=== PATIENT | female | born 1960 | race Caucasian/White ===

== ENCOUNTER 2020-12-06 13:14 | Emergency (ER) | payer BC ==
[2020-12-06 16:00] LABS: ALT/SGPT 65 U/L (12-78); AST/SGOT 32 U/L (15-37); Albumin 4.5 g/dL (3.4-5.0); Alkaline Phosphatase 138 U/L (45-117); BUN Blood Urea Nitrogen 14 mg/dL (7-18); Bicarbonate 27 mmol/L (21-32); Bilirubin Direct 0.4 mg/dL (0-0.2); Bilirubin Total 2.5 mg/dL (0.2-1.0); Glucose Level 108 mg/dL (74-106); Lipase 101 U/L (73-393); Protein, Total 7.6 g/dL (6.4-8.2); Sodium Level 141 mmol/L (136-145)
[2020-12-06 16:04] LABS: Absolute Lymphocytes (CBC) 3.8 K/uL (0.7-4.9); Basophils % 0.9 % (0-1.3); Hematocrit 40.9 % (36.0-45.0); Lymphocytes % 32.9 % (15.3-44.8); MPV 7.8 fL (7.6-11.3); RBC Red Blood Cell Count 4.92 M/uL (3.86-4.86)
--- NOTE | 2020-12-06 16:52 | RAD REPORT ---
EXAM DESCRIPTION: CT - Abdomen Pelvis W Contrast - 12/06/2020 4:32 pm CLINICAL HISTORY: Abdominal pain COMPARISON: none. TECHNIQUE: Computed axial tomography of the abdomen pelvis was obtained. 100 cc Isovue-300 was admin istered intravenously. Oral contrast was not requested which limits evaluation of bowel. All CT scans are performed using dose optimization technique as appropriate and may include automated exposure control or mA/KV adjustment according to patient size. FINDINGS: Fatty liver. Spleen, pancreas, adrenal and kidneys appear unremarkable. There is no evidence of diverticulitis. Normal appendix. Small amount of ill-defined fluid is present within the subcutaneous tissues of the periumbilical reg ion. A discrete abscess is not seen. Increased density within the subcutaneous tissue is also present . Small umbilical hernia is noted IMPRESSION: Small umbilical hernia. Small amount of ill-defined fluid and increased density within t he subcutaneous tissues probably indicating a cellulitis
--- NOTE | 2020-12-06 17:30 | ER ---
Nurse's Notes [facility] Name: Lauren Edmonds Age: 60 yrs Sex: Female : 1960 Arrival Date: 12/06/2020 Time: 13:20 Bed 16 Private MD: Diagnosis: Cellulitis of abdominal wall Presentation: 12/06 13:29 Chief complaint: Patient states: Pain to belly button area since Wednesday night. Red ll1 [place] around her belly button and discharge from area started today. No fever. Coronavirus screen: Vaccine status: Patient reports receiving the 2nd dose of the covid vaccine. Client denies travel out of the [place] in the last 14 days. At this time, the client does not indicate any symptoms associated with coronavirus-19. Ebola Screen: Patient denies travel to an Ebola-affected area in the 21 days before illness onset. Initial Sepsis Screen: Does the patient meet any 2 criteria? HR > 90 bpm. No. Patient's initial sepsis screen is negative. Does the patient have a suspected source of infection? Yes: Skin breakdown/wound. Risk Assessment: Do you want to hurt yourself or someone else? Patient reports no desire to harm self or others. Onset of symptoms was December 03, 2020. 13:29 Method Of Arrival: Ambulatory ll1 13:29 Acuity: ANGEL 3 ll1 Historical: - Allergies: 13:31 No Known Allergies; ll1 - PMHx: 13:31 None; ll1 - PSHx: 13:31 hysterectomy; Tonsillectomy; ll1 - Immunization history:: Client reports receiving the 2nd dose of the Covid vaccine, Flu vaccine is not up to date. - Social history:: Smoking status: Patient denies any tobacco usage or history of. Screenin:11 Abuse screen: Denies threats or abuse. Denies injuries from another. Nutritional tc5 screening: No deficits noted. Tuberculosis screening: No symptoms or risk factors identified. Fall Risk None identified. Assessment: 15:09 Pain: Complains of pain in umbilical area. Derm: Reports pt reports redness around and tc5 clear/bloody drainage from the belly button since wednesday. Vital Signs: 13:29 BP 116 / 82; Pulse 99; Resp 17; Temp 98.0; Pulse Ox 98% ; Weight 94.35 kg; Height 5 ft. ll1 7 in. (170.18 cm); Pain 7/10; 18:04 BP 130 / 83; Pulse 81; Resp 16; Pulse Ox 100% ; tc5 18:35 BP 120 / 89; Pulse 80; Resp 16; Pulse Ox 100% ; tc5 13:29 Body Mass Index 32.58 (94.35 kg, 170.18 cm) 1 ED Course: 13:20 Patient arrived in ED. 2 13:31 Triage completed. ll1 13:32 Arm band placed on. ll1 14:40 Destiny Rojas, HIMANSHU is Primary Nurse. tc5 15:02 Dick Alba NP is PHCP. pm1 15:02 Radames Quiles MD is Attending Physician. pm1 15:37 Inserted saline lock: 20 gauge in left antecubital area, using aseptic technique. Blood tc5 collected. 16:32 CT Abd/Pelvis - IV Contrast Only In Process Unspecified. 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 Exp: tc5 07/12/2022. Lot #: [id number]. } Route: IM; Site: left deltoid; 18:36 Follow up: Response: No adverse reaction tc5 Outcome: 17:29 Discharge ordered by . pm1 18:36 Patient left the ED. tc5 Signatures: Dispatcher [employer] EDMS Dick Alba NP SUBSTANCE ABUSE TECHNICIAN pm1 Raheel Baker RN RN 1 Kiya Shah [facility] Destiny Rojas RN RN tc5
--- NOTE | 2020-12-06 17:30 | EDPHYS ---
Physician Documentation [facility] Name: Lauren Edmonds Age: 60 yrs Sex: Female : 1960 Arrival Date: 12/06/2020 Time: 13:20 Bed 16 Private MD: ED Physician Radames Quiles HPI: 12/06 15:39 This 60 yrs old Female presents to ER via Ambulatory with complaints of BELLY pm1 BUTTON DISCHARGE, REDNESS AROUND BELLY BUTTON. 15:39 Onset: The symptoms/episode began/occurred 3 day(s) ago. pm1 15:39 The patient presents with cellulitis of the umbilical area. Description: Circular, pm1 draining, raised. Possible cause(s): unknown. Associated signs and symptoms: Pertinent negatives: fever, Abdominal pain. Modifying factors: the symptoms are alleviated by nothing, the symptoms are aggravated by nothing. Severity of symptoms: in the emergency department the symptoms are actually worse. The patient has not experienced similar symptoms in the past. The patient has not recently seen a physician. Historical: - Allergies: 13:31 No Known Allergies; ll1 - PMHx: 13:31 None; ll1 - PSHx: 13:31 hysterectomy; Tonsillectomy; ll1 - Immunization history:: Client reports receiving the 2nd dose of the Covid vaccine, Flu vaccine is not up to date. - Social history:: Smoking status: Patient denies any tobacco usage or history of. ROS: 15:39 Constitutional: Negative for fever, chills, and weight loss, Cardiovascular: Negative pm1 for chest pain, palpitations, and edema, Respiratory: Negative for shortness of breath, cough, wheezing, and pleuritic chest pain, Abdomen/GI: Negative for abdominal pain, nausea, vomiting, diarrhea, and constipation, MS/Extremity: Negative for injury and deformity. 15:39 Neuro: Negative for headache, weakness, numbness, tingling, and seizure. 15:39 Skin: Positive for cellulitis, of the umbilical area. 15:39 All other systems are negative. Exam: 15:39 Constitutional: This is a well developed, well nourished patient who is awake, alert, pm1 and in no acute distress. Head/Face: Normocephalic, atraumatic. 15:39 Back: No spinal tenderness. No costovertebral tenderness. Full range of motion. 15:39 Eyes: Exam is negative for acute changes, Extraocular movements: no acute changes, Conjunctiva: no acute changes, no injection, Sclera: no acute changes, icterus, is not appreciated. 15:39 ENT: Exam is negative for acute changes, Mouth: no acute changes, Lips: normal, moist, Oral mucosa: normal, pink and intact, moist. 15:39 Cardiovascular: Exam negative for acute changes, Rate: normal, Rhythm: regular, Pulses: no pulse deficits are appreciated. 15:39 Respiratory: Exam negative for acute changes, respiratory distress, shortness of breath, Breath sounds: are clear throughout. 15:39 Abdomen/GI: Exam negative for acute changes, Inspection: abdomen appears normal, Palpation: abdomen is soft and non-tender, in all quadrants. 15:39 Skin: Appearance: normal except for affected area, cellulitis, that is mild, on the umbilical area. 15:39 Neuro: Exam negative for acute changes, Orientation: is normal, Motor: is normal, moves all fours. Vital Signs: 13:29 BP 116 / 82; Pulse 99; Resp 17; Temp 98.0; Pulse Ox 98% ; Weight 94.35 kg; Height 5 ft. ll1 7 in. (170.18 cm); Pain 7/10; 18:04 BP 130 / 83; Pulse 81; Resp 16; Pulse Ox 100% ; tc5 18:35 BP 120 / 89; Pulse 80; Resp 16; Pulse Ox 100% ; tc5 13:29 Body Mass Index 32.58 (94.35 kg, 170.18 cm) ll1 MDM: 15:39 Patient medically screened. pm1 17:00 Data reviewed: vital signs. Data interpreted: Pulse oximetry: on room air is 98 %. pm1 Interpretation: normal. Counseling: I had a detailed discussion with the patient and/or guardian regarding: the historical points, exam findings, and any diagnostic results supporting the discharge/admit diagnosis. 12/06 15:15 Order name: Basic Metabolic Panel; Complete Time: 16:01 pm1 12/06 15:15 Order name: CBC with Diff; Complete Time: 16:10 pm1 12/06 15:15 Order name: Hepatic Function; Complete Time: 16:01 pm1 12/06 15:15 Order name: Lipase; Complete Time: 16:01 pm1 12/06 15:15 Order name: CT Abd/Pelvis - IV Contrast Only; Complete Time: 17:00 pm1 12/06 15:15 Order name: IV Saline Lock; Complete Time: 15:37 pm1 12/06 15:15 Order name: Labs collected and sent; Complete Time: 15:37 pm1 Administered Medications: 17:55 Drug: Clindamycin 900 mg Route: IVPB; Infused Over: 30 mins; Site: left antecubital; tc5 18:36 Follow up: Response: No adverse reaction tc5 17:55 Drug: Tetanus-Diphtheria Toxoid Adult 0.5 ml {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 Exp: tc5 07/12/2022. Lot #: [id number]. } Route: IM; Site: left deltoid; 18:36 Follow up: Response: No adverse reaction tc5 Disposition: 18:40 Co-signature as Attending Physician, Radames Quiles MD I agree with the assessment and rn plan of care. Attestation: The patient's history, exam findings, diagnostics, and a summary of any interventions or procedures was reviewed in detail with Dick Alba NP. Disposition Summary: 12/06/20 17:29 Discharge Ordered Location: Home pm1 Problem: new pm1 Symptoms: have improved pm1 Condition: Stable pm1 Diagnosis - Cellulitis of abdominal wall pm1 Followup: pm1 - With: Emergency Department - When: As needed - Reason: Worsening of condition Followup: pm1 - With: Private Physician - When: 2 - 3 days - Reason: Recheck today's complaints, Continuance of care, Re-evaluation by your physician Discharge Instructions: - Discharge Summary Sheet pm1 - Cellulitis, Adult pm1 Forms: - Medication Reconciliation Form pm1 - Thank You Letter pm1 - Antibiotic Education pm1 - Prescription Opioid Use pm1 Prescriptions: - Clindamycin HCl 300 mg Oral Capsule - take 1 capsule by ORAL route every 6 hours for 10 days; 40 capsule; Refills: 0, pm1 Product Selection Permitted Signatures: Dispatcher [employer] EDRadames Rivera MD MD rn Marinas, Patrick, NP TICKET SORTER pm1 Raheel Baker RN RN ll1 Destiny Rojas RN RN tc5
[2020-12-06] MEDS ORDERED: CLINDAMYCIN 900MG/D5W 900 MG/50 ML IVPB IV ONE (18:16)
[2020-12-06] MEDS ORDERED: TETANUS & DIPHTHERIA TOX,ADULT 0.5 ML VIAL ONE (18:17)
[2020-12-06 18:42] VITALS: TEMP 98
[2020-12-06 18:44] VITALS: O2SAT 100
[2020-12-06 18:45] VITALS: BP 120/89
== END 2020-12-06 18:36 | disposition home or self-care (01) ==
LOC: ER 13:14
DX: L03.311 Cellulitis of abdominal wall (principal); Z23 Encounter for immunization
CPT/HCPCS: 85025; 80048; 36415; 80076; 83690; 74177; 90471; 90714; 96374; 99284; Q9967

== ENCOUNTER 2020-12-12 11:38 | Emergency (ER) | payer BC ==
--- NOTE | 2020-12-12 11:59 | EDPHYS ---
Physician Documentation [facility] Name: Lauren Edmonds Age: 60 yrs Sex: Female : 1960 Arrival Date: 12/12/2020 Time: 11:41 Bed 11 Private MD: PHIL Physician Wilfredo Gruber HPI: 12/12 16:41 This 60 yrs old Female presents to ER via Ambulatory with complaints of kb Allergic Reaction, Rash. 16:41 The patient presents with rash, that is diffuse. Onset: The symptoms/episode kb began/occurred 3 day(s) ago. Associated signs and symptoms: Pertinent positives: rash. Possible causes: antibiotics, clindamycin. At home the patient or guardian has treated the symptoms with Benadryl. Severity of symptoms: At their worst the symptoms were mild in the emergency department the symptoms are unchanged. The patient has not experienced similar symptoms in the past. The patient has not recently seen a physician. Pt reports rash that developed after starting clindamycin. Historical: - Allergies: 11:53 possibly clindamycin; ap3 - Home Meds: 11:53 Lisinopril Oral [Active]; atorvastatin oral [Active]; ap3 - PSHx: 11:53 hysterectomy; Tonsillectomy; ap3 - Immunization history:: Adult Immunizations up to date, Client reports receiving the 2nd dose of the Covid vaccine. - Social history:: Smoking status: Patient denies any tobacco usage or history of. ROS: 16:41 Constitutional: Negative for fever, chills, and weight loss. kb 16:41 Skin: Positive for rash. 16:41 All other systems are negative. Exam: 16:41 Constitutional: This is a well developed, well nourished patient who is awake, alert, kb and in no acute distress. Head/Face: Normocephalic, atraumatic. ENT: Moist Mucous membranes Respiratory: Respirations even and unlabored. No increased work of breathing, no retractions or nasal flaring. MS/ Extremity: Pulses equal, no cyanosis. Neurovascular intact. Full, normal range of motion. Neuro: Awake and alert, GCS 15, oriented to person, place, time, and situation. Moves all extremities. Normal gait. Psych: Awake, alert, with orientation to person, place and time. Behavior, mood, and affect are within normal limits. 16:41 Skin: rash a moderate rash is noted, rash can be described as papular, and is diffusely located. Vital Signs: 11:50 BP 109 / 74; Pulse 82; Resp 16; Temp 98.4(TE); Pulse Ox 100% on R/A; Weight 94.35 kg; ap3 Height 5 ft. 6 in. (167.64 cm) (R); 12:38 BP 121 / 65; Pulse 86; Resp 17; Pulse Ox 100% on R/A; ll1 11:50 Body Mass Index 33.57 (94.35 kg, 167.64 cm) ap3 MDM: 11:57 Patient medically screened. kb 16:37 Data reviewed: vital signs, nurses notes. Data interpreted: Pulse oximetry: on room air kb is 100 %. Interpretation: normal. Counseling: I had a detailed discussion with the patient and/or guardian regarding: the historical points, exam findings, and any diagnostic results supporting the discharge/admit diagnosis, the need for outpatient follow up, a family practitioner, to return to the emergency department if symptoms worsen or persist or if there are any questions or concerns that arise at home. Administered Medications: 12:22 Drug: predniSONE 40 mg Route: PO; ll1 12:39 Follow up: Response: No adverse reaction ll1 12:22 Drug: Pepcid (famotidine) 20 mg Route: PO; ll1 12:39 Follow up: Response: No adverse reaction ll1 Disposition Summary: 12/12/20 11:59 Discharge Ordered Location: Home kb Condition: Stable kb Diagnosis - Allergy status to other antibiotic agents status - clindamycin kb - Rash and other nonspecific skin eruption kb Followup: kb - With: Emergency Department - When: As needed - Reason: Worsening of condition Followup: kb - With: Private Physician - When: 2 - 3 days - Reason: Recheck today's complaints, Continuance of care, Re-evaluation by your physician Discharge Instructions: - Discharge Summary Sheet kb - Rash, Adult, [id number] kb - Allergies, Adult, [id number] kb Forms: - Medication Reconciliation Form kb - Thank You Letter kb - Antibiotic Education kb - Prescription Opioid Use kb Prescriptions: - Pepcid 20 mg Oral Tablet - take 1 tablet by ORAL route every 12 hours for 5 days; 10 tablet; Refills: 0, kb Product Selection Permitted - Prednisone 20 mg Oral Tablet - take 1 tablet by ORAL route once daily for 5 days; 5 tablet; Refills: 0, kb Product Selection Permitted Addendum: 12/13/2020 13:07 Co-signature as Attending Physician, Wilfredo Gruber MD I agree with the assessment and c lewis plan of care. Signatures: Glenna Duran, JAMES-C JAMES-Wilfredo Malone MD MD cha Prokisch, Amanda RN RN ap3 Raheel Baker RN RN ll1
--- NOTE | 2020-12-12 11:59 | ER ---
Nurse's Notes [facility] Name: Lauren Edmonds Age: 60 yrs Sex: Female : 1960 Arrival Date: 12/12/2020 Time: 11:41 Bed 11 Private MD: Diagnosis: Allergy status to other antibiotic agents status-clindamycin;Rash and other nonspecific skin eruption Presentation: 12/12 11:50 Chief complaint: Patient states: she was seen here Wednesday, and given antibiotics. ap3 Patient states that she started the antibiotice (Clindamycin 300mg) Wednesday, and the rash appeared Wednesday12/10/2020 on her trunk and back. Since the rash appeared patient stopped taking medication. Coronavirus screen: At this time, the client does not indicate any symptoms associated with coronavirus-19. Ebola Screen: No symptoms or risks identified at this time. Onset: The symptoms/episode began/occurred 2 day(s) ago. Anaphylaxis evaluation, no signs or symptoms of anaphylaxis were noted. Initial Sepsis Screen: Does the patient meet any 2 criteria? No. Patient's initial sepsis screen is negative. Does the patient have a suspected source of infection? No. Patient's initial sepsis screen is negative. Risk Assessment: Do you want to hurt yourself or someone else? Patient reports no desire to harm self or others. Onset of symptoms was December 10, 2020. 11:50 Method Of Arrival: Ambulatory ap3 11:50 Acuity: ANGEL 3 ap3 Triage Assessment: 11:57 General: Appears in no apparent distress. Behavior is calm, appropriate for age. Pain: ap3 Denies pain. Neuro: Level of Consciousness is awake, alert, obeys commands, Oriented to person, place, time, situation, Appropriate for age Gait is steady, Speech is normal. Cardiovascular: Capillary refill < 3 seconds Patient's skin is warm and dry. Derm: Rash noted that is papular, on back and chest. Historical: - Allergies: 11:53 possibly clindamycin; ap3 - Home Meds: 11:53 Lisinopril Oral [Active]; atorvastatin oral [Active]; ap3 - PSHx: 11:53 hysterectomy; Tonsillectomy; ap3 - Immunization history:: Adult Immunizations up to date, Client reports receiving the 2nd dose of the Covid vaccine. - Social history:: Smoking status: Patient denies any tobacco usage or history of. Screenin:58 Abuse screen: Denies threats or abuse. Nutritional screening: No deficits noted. ap3 Nutritional screening: No deficits noted. Tuberculosis screening: No symptoms or risk factors identified. Fall Risk None identified. Assessment: 11:58 Respiratory: Airway is patent Respiratory effort is even, unlabored, Respiratory ap3 pattern is regular, symmetrical, Breath sounds are clear bilaterally. 12:38 Reassessment: No changes from previously documented assessment. Patient and/or family ll1 updated on plan of care and expected duration. Pain level reassessed. Patient is alert, oriented x 3, equal unlabored respirations, skin warm/dry/pink. Vital Signs: 11:50 BP 109 / 74; Pulse 82; Resp 16; Temp 98.4(TE); Pulse Ox 100% on R/A; Weight 94.35 kg; ap3 Height 5 ft. 6 in. (167.64 cm) (R); 12:38 BP 121 / 65; Pulse 86; Resp 17; Pulse Ox 100% on R/A; ll1 11:50 Body Mass Index 33.57 (94.35 kg, 167.64 cm) ap3 ED Course: 11:41 Patient arrived in ED. mr 11:53 Triage completed. ap3 11:53 Glenna Duran FNP-C is [facility]. kb 11:53 Wilfredo Gruber MD is Attending Physician. kb 11:59 Arm band placed on left wrist. ap3 11:59 Patient has correct armband on for positive identification. Pulse ox on. NIBP on. ap3 12:16 Raheel Baker, HIMANSHU is Primary Nurse. ll1 12:38 No provider procedures requiring assistance completed. Patient did not have IV access ll1 during this emergency room visit. Administered Medications: 12:22 Drug: predniSONE 40 mg Route: PO; ll1 12:39 Follow up: Response: No adverse reaction ll1 12:22 Drug: Pepcid (famotidine) 20 mg Route: PO; ll1 12:39 Follow up: Response: No adverse reaction ll1 Outcome: 11:59 Discharge ordered by . kb 12:38 Discharged to home ambulatory. ll1 12:38 Condition: stable 12:38 Discharge instructions given to patient, Instructed on discharge instructions, follow up and referral plans. medication usage, Demonstrated understanding of instructions, follow-up care, medications, Prescriptions given X 2. 12:39 Patient left the ED. ll1 Signatures: Glenna Duran, MAHOGANY RAMIREZ-Julia Luna Amanda, RN RN ap3 Raheel Baker RN RN ll1
[2020-12-12] MEDS ORDERED: FAMOTIDINE 20 MG TAB ONE (12:43)
[2020-12-12] MEDS ORDERED: predniSONE 20 MG TAB ONE (12:43)
[2020-12-12 12:46] VITALS: TEMP 98.4; O2SAT 100
[2020-12-12 12:51] VITALS: BP 121/65
== END 2020-12-12 12:39 | disposition home or self-care (01) ==
LOC: ER 11:38
DX: R21 Rash and other nonspecific skin eruption (principal); Z88.3 Allergy status to other anti-infective agents
CPT/HCPCS: 99283; J7512

== ENCOUNTER 2024-12-19 15:35 | Emergency (ER) | payer OTHER ==
[2024-12-19 16:34] LABS: Sqamous Epithelial <5 /HPF (None Seen); Urine Culture Reflex Order NOT NEEDED; Urine Microscopic Reflex YN ORDER UMIC
[2024-12-19 17:09] LABS: Absolute Lymphocytes (CBC) 1.7 K/uL (0.7-4.9); Hematocrit 41.8 % (36.0-45.0); Hemoglobin 14.0 g/dL (12.0-15.0); MCH 27.5 pg (27.0-35.0); MCHC 33.4 g/dL (32.0-36.0); MCV 82.3 fL (80-100); MPV 7.5 fL (7.6-11.3); Nucleated RBC Absolute Count 0.0 (0-0); Nucleated Red Blood Cells % 0.1 % (0-0); RBC Red Blood Cell Count 5.08 M/uL (3.86-4.86); White Blood Count 11.20 thou/uL (4.3-10.9)
[2024-12-19 17:24] LABS: Anion Gap 11.1 mEq/L (5.0-15.0); BUN Blood Urea Nitrogen 14.0 mg/dL (7-18); Glucose Level 194.0 mg/dL (74-106)
[2024-12-19 17:26] LABS: Potassium 4.1 mEq/L (3.5-5.1)
[2024-12-19] MEDS ORDERED: KETOROLAC 30 MG/ML INJ ONE (17:51)
--- NOTE | 2024-12-19 17:52 | RAD REPORT ---
EXAMINATION: CT Stone Protocol CLINICAL INDICATION: Female, 64 years old. ABD PAIN TECHNIQUE: CT abdomen and pelvis was performed, without IV contrast, as per department protocol. Axia l, sagittal and coronal reconstructions were obtained. One or more of the following dose reduction techniques were used: Automated exposure control, adjustment of the mA and kV according to the patien t size, and iterative reconstruction. Unless otherwise specified, incidental findings do not require dedicated imaging follow-up. COMPARISON: 12/06/2020 FINDINGS: The lack of intravenous contrast limits the sensitivity of this exam for evaluation of solid visceral organs, vascular structures, and retroperitoneum. LOWER CHEST: The visualized lung bases are clear. LIVER: Normal in size and contour. No focal lesion. BILIARY SYSTEM: Small dependent gallstone near the fundus measuring 2 mm. No evidence of intra or ext rahepatic biliary ductal dilation.. SPLEEN: Normal size. No focal lesion. PANCREAS: No mass, ductal dilation, or darwin-pancreatic fluid. ADRENALS: Normal; no mass. KIDNEYS AND URETERS: Normal size and contour. Mild left hydroureteronephrosis.. URINARY BLADDER: 5 mm calculus along the left posterior wall, para midline, could be at the left vesi coureteral junction, more recently passed. GASTROINTESTINAL TRACT: No evidence of bowel obstruction, significant free fluid, free air or abscess . Distal colonic diverticulosis without evidence of acute diverticulitis APPENDIX: Normal appendix. LYMPH NODES: No lymphadenopathy. MUSCULOSKELETAL: No acute or suspicious osseous abnormality. ADDITIONAL FINDINGS: None. IMPRESSION: Mild left hydroureteronephrosis.. 5 mm calculus along the left posterior bladder wall, could be on th e left vesicoureteral junction, or recently passed. Other incidental findings including a small gallstone. THIS REPORT CONTAINS FINDINGS THAT MAY BE CRITICAL TO PATIENT CARE. The findings were verbally commun icated via telephone to Jaleel Hays M.D. on 12/19/2024 5:50 PM.
--- NOTE | 2024-12-19 18:24 | EDPHYS ---
Physician Documentation [facility] Name: Lauren Edmonds Age: 64 yrs Sex: Female : 1960 Arrival Date: 12/19/2024 Time: 15:35 Bed 10 Private MD: ED Physician Jaleel Hays HPI: 12/19 16:05 This 64 yrs old Female presents to ER via Unassigned with complaints of Possible Kidney kb Stone, Urinary Problem. 16:05 Pt is a 64 year old female who presents for suprapubic pain, dysuria, urgency, and kb urinating small amounts that started today. denies flank pain, n/v, fever. . Historical: - Allergies: 16:06 possibly clindamycin; dd2 - PMHx: 16:06 Hypertensive disorder; Hypercholesterolemia; dd2 - PSHx: 16:06 hysterectomy; Tonsillectomy; dd2 - Immunization history:: Adult Immunizations up to date. - Infectious Disease History:: Denies. - Social history:: Smoking status: Patient denies any tobacco usage or history of. ROS: 16:05 Constitutional: As per HPI kb Exam: 16:05 Constitutional: This is a well developed, well nourished patient who is awake, alert, kb and in no acute distress. Head/Face: Normocephalic, atraumatic. ENT: Moist Mucous membranes Cardiovascular: Regular rate Respiratory: Respirations even and unlabored. No increased work of breathing. Talking in full sentences Skin: Warm, dry with normal turgor. Normal color. MS/ Extremity: Pulses equal, no cyanosis. Neurovascular intact. Full, normal range of motion. Neuro: Awake and alert, GCS 15, oriented to person, place, time, and situation. 16:05 Abdomen/GI: Inspection: abdomen appears normal, Bowel sounds: normal, Palpation: soft, in all quadrants, mild abdominal tenderness, in the suprapubic area, Vital Signs: 16:03 BP 118 / 77; Pulse 98; Resp 17; Temp 97.6; Pulse Ox 100% ; Weight 89.36 kg; Pain 7/10; dd2 17:45 BP 120 / 63; Pulse 67; Resp 20; Pulse Ox 100% on R/A; kj2 18:39 BP 121 / 68; Pulse 66; Resp 18; Temp 98; Pulse Ox 100% on R/A; kj2 16:03 Pain Scale: Adult dd2 MDM: 15:40 Medical Screening Exam initiated kb 16:08 Data reviewed: vital signs, nurses notes. kb 18:21 Differential diagnosis: kidney stone, pyelonephritis, uti. Counseling: I had a detailed kb discussion with the patient and/or guardian regarding the historical points, exam findings, and any diagnostic results supporting the discharge/admit diagnosis, lab results, radiology results, the need for outpatient follow up, a urologist, to return to the emergency department if symptoms worsen or persist or if there are any questions or concerns that arise at home. 12/19 16:04 Order name: UA Rfx Andrea Cult if indicated; Complete Time: 16:35 kb 12/19 16:36 Order name: CBC with Diff; Complete Time: 17:18 kb 12/19 16:36 Order name: BMP; Complete Time: 17:29 kb 12/19 16:36 Order name: CT Stone Protocol; Complete Time: 17:54 kb 12/19 16:36 Order name: IV Start; Complete Time: 17:04 kb Administered Medications: 18:07 Drug: Ketorolac IVP 15 mg IVP once Route: IVP; Site: left antecubital; kj2 18:41 Follow up: Response: No adverse reaction kj2 Disposition: 16:21 I was immediately available on-site in the Emergency Department for consultation in the ms3 care of the patient. Disposition Summary: 12/19/24 18:23 Discharge Ordered Notes: Location: Home kb Condition: Stable kb Diagnosis - Kidney Stone/ Calculus in bladder kb Followup: kb - With: Emergency Department - When: As needed - Reason: Worsening of condition Followup: kb - With: Private Physician - When: 2 - 3 days - Reason: Recheck today's complaints, Continuance of care, Re-evaluation by your physician Discharge Instructions: - Discharge Summary Sheet kb - Kidney Stones, [id number] kb Forms: - Medication Reconciliation Form kb - Antibiotic Education kb - Prescription Opioid Use kb - Patient Portal Instructions kb - Leadership Thank You Letter kb Prescriptions: - Diclofenac Sodium 75 mg Oral tablet, delayed release (enteric coated) - take 1 tablet ORAL route 2 times per day As needed; 30 tablet; Refills: 0, kb Product Selection Permitted Signatures: Dispatcher [employer] Glenna Fiore FNP-C STATUE MAKER-Ckb Jaleel Hays DO DO ms3 Renetta Owen, RN RN kj2 LLUVIA FARRIS, RN RN dd2
--- NOTE | 2024-12-19 18:24 | ER ---
Nurse's Notes [facility] Name: Lauren Edmonds Age: 64 yrs Sex: Female : 1960 Arrival Date: 12/19/2024 Time: 15:35 Bed 10 Private MD: Diagnosis: Kidney Stone/ Calculus in bladder Presentation: 12/19 16:03 Chief complaint: Patient states: LOWER LT STOMACH PAIN, LT SIDE PAIN, URINARY URGENCY, dd2 DECREASE OUTPUT STARTING THIS MORNING. Coronavirus screen: At this time, the client does not indicate any symptoms associated with coronavirus-19. Ebola Screen: No symptoms or risks identified at this time. Initial Sepsis Screen: Does the patient meet any 2 criteria? No. Patient's initial sepsis screen is negative. Does the patient have a suspected source of infection? No. Patient's initial sepsis screen is negative. Risk Assessment: Do you want to hurt yourself or someone else? Patient reports no desire to harm self or others. Onset of symptoms was December 19, 2024. 16:03 Method Of Arrival: Ambulatory dd2 16:03 Acuity: ANGEL 3 dd2 Triage Assessment: 16:06 General: Appears in no apparent distress. uncomfortable, Behavior is calm, cooperative, dd2 appropriate for age. Pain: Complains of pain in left low back, posterior aspect of left lateral abdomen, anterior aspect of left lateral abdomen and left lower quadrant. GI: Reports lower abdominal pain. : Reports inability to void, urgency. Historical: - Allergies: 16:06 possibly clindamycin; dd2 - PMHx: 16:06 Hypertensive disorder; Hypercholesterolemia; dd2 - PSHx: 16:06 hysterectomy; Tonsillectomy; dd2 - Immunization history:: Adult Immunizations up to date. - Infectious Disease History:: Denies. - Social history:: Smoking status: Patient denies any tobacco usage or history of. Screenin:45 [facility] ED Fall Risk Assessment (Adult) History of falling in the last 3 months, kj2 including since admission No falls in past 3 months (0 pts) Confusion or Disorientation No (0 pts) Intoxicated or Sedated No (0 pts) Impaired Gait No (0 pts) Mobility Assist Device Used No (0 pt) Altered Elimination No (0 pt) Score/Fall Risk Level 0 - 2 = Low Risk Maintained a safe environment, Hourly rounding (assess needs \T\ fall precautionary measures) done. Abuse screen: Denies threats or abuse. Denies injuries from another. Nutritional screening: No deficits noted. Tuberculosis screening: No symptoms or risk factors identified. Assessment: 16:45 General: Appears in no apparent distress. Behavior is cooperative. Pain: Complains of kj2 pain in abdomen and back and left lower quadrant Pain currently is 6 out of 10 on a pain scale. Neuro: Level of Consciousness is awake, alert, obeys commands, Oriented to person, place, time, situation. Cardiovascular: Patient's skin is warm and dry. Respiratory: Airway is patent Respiratory effort is even, unlabored. : Reports urinary frequency. 16:50 GI: Bowel sounds present X 4 quads. Abd is non tender. kj2 17:45 Reassessment: Patient appears in no apparent distress at this time. Patient and/or kj2 family updated on plan of care and expected duration. Pain level reassessed. Patient is alert, oriented x 3, equal unlabored respirations, skin warm/dry/pink. 18:38 Reassessment: Patient appears in no apparent distress at this time. Patient and/or kj2 family updated on plan of care and expected duration. Pain level reassessed. Patient is alert, oriented x 3, equal unlabored respirations, skin warm/dry/pink. Vital Signs: 16:03 BP 118 / 77; Pulse 98; Resp 17; Temp 97.6; Pulse Ox 100% ; Weight 89.36 kg; Pain 7/10; dd2 17:45 BP 120 / 63; Pulse 67; Resp 20; Pulse Ox 100% on R/A; kj2 18:39 BP 121 / 68; Pulse 66; Resp 18; Temp 98; Pulse Ox 100% on R/A; kj2 16:03 Pain Scale: Adult dd2 ED Course: 15:39 Patient arrived in ED. cj3 15:40 [facility] Duran [facility]C [facility] kb 15:40 Jaleel Hays DO is Attending Physician. kb 16:06 Triage completed. dd2 16:06 Arm band placed on left wrist. dd2 16:25 UA Rfx Andrea Cult if indicated Sent. ll1 16:33 UA Rfx Andrea Cult if indicated Sent. ll1 16:45 Patient has correct armband on for positive identification. Bed in low position. Call kj2 light in reach. Provided Education on: call light. 16:46 Renetta Owen, RN is Primary Nurse. kj2 17:00 Inserted saline lock: 20 gauge in left antecubital area, using aseptic technique. Blood kj2 collected. Flushed with 10 mL NS. 17:18 CT Stone Protocol In Process Unspecified. EDMS 18:39 No provider procedures requiring assistance completed. kj2 18:41 IV discontinued, intact, bleeding controlled, No redness/swelling at site. Pressure kj2 dressing applied. Administered Medications: 18:07 Drug: Ketorolac IVP 15 mg IVP once Route: IVP; Site: left antecubital; kj2 18:41 Follow up: Response: No adverse reaction kj2 Medication: 17:18 VIS not applicable for this client. kj2 Outcome: 18:23 Discharge ordered by . kb 18:40 Discharged to home ambulatory, kj2 18:40 Condition: stable 18:40 Discharge instructions given to patient, Instructed on discharge instructions, follow up and referral plans. Demonstrated understanding of instructions, follow-up care, 18:49 Patient left the ED. kj2 Signatures: Dispatcher [employer] EDKS Glenna Duran, INFRASTRUCTURE ARCHITECT-C INFRASTRUCTURE ARCHITECT-Raheel Ko RN RN ll1 Renetta Owen, RN RN kj2 LLUVIA FARRIS, HIMANSHU RN dd2 Chary Samaniego 3
[2024-12-19 21:28] VITALS: O2SAT 100
[2024-12-19 21:36] VITALS: BP 121/68; TEMP 98
== END 2024-12-19 18:49 | disposition home or self-care (01) ==
LOC: ER 15:35
DX: N21.0 Calculus in bladder (principal); N20.0 Calculus of kidney
CPT/HCPCS: 85025; 81001; 80048; 36415; 76377; 74176; 96374; 99284; J1885